=== PATIENT | male | born 1945 | race Caucasian/White ===

== ENCOUNTER → 2018-09-10 11:43 | Outpatient (CLI) | payer OTHER, SELFPAY ==
[2018-09-10 11:58] LABS: Bacteria Urine None Seen; RBC Urine None Seen (0-5/HPF)
[2018-09-10 12:26] LABS: Add Manual Diff / Slide Review NO; Basophils Percent Auto 0.4 % (0-2); Eosinophils Percent Auto 1.1 % (2-4); Hematocrit 45.4 % (41-53); Hemoglobin 15.5 g/dL (13.5-17.5); Mean Corpuscular HGB Conc 34.2 % (30-36); Mean Corpuscular Hemoglobin 32.5 PG (26-34); Mean Corpuscular Volume 94.9 fL (80-100); Monocytes Percent Auto 8.4 % (3-14); Neutrophils Absolute Auto 3400 /uL (3000-5900); Neutrophils Percent Auto 57.1 % (50-75); Platelet Count 180 X10^3/uL (150-400); Red Blood Cell Count 4.79 X10^6/uL (4.5-5.9); Red Cell Distribution Width 12.9 % (11.6-14.8)
[2018-09-10 12:37] LABS: Appearance Urine UA CLEAR; Bilirubin Urine UA NEGATIVE (NEGATIVE); Color Urine UA YELLOW; Glucose Urine UA NEGATIVE (Normal); Ketones Urine UA NEGATIVE (NEGATIVE); Leukocyte Esterase Urine UA NEGATIVE (NEGATIVE); Nitrite Urine UA NEGATIVE (Negative); Occult Blood Urine UA NEGATIVE (Negative); Protein Urine UA NEGATIVE (Negative); Specific Gravity Urine UA 1.015 (1.000-1.035); Urobilinogen Urine UA 0.2 E.U./dL (0.2)
[2018-09-10 12:47] LABS: BUN Creatinine Ratio 21.1 (6-22); Blood Urea Nitrogen 19 mg/dL (9-20); Calcium 9.9 mg/dL (8.4-10.2); Carbon Dioxide 27 mmol/L (22-32); Chloride 101 mmol/L (98-107); Estimated Glomerular Filt Rate > 60.0 mL/min (>60); Glucose 92 mg/dL (80-110); HEMOLYSIS < 15 (0-50); Sodium 142 mmol/L (137-145)
[2018-09-10 12:48] LABS: Hemoglobin A1C% w Est Avg Glu 5.9 % (4.0-6.0)
[2018-09-10 12:49] LABS: Squamous Epithelial Cell Urine 0-1 /HPF; WBC Urine 0-1/HPF (0-5/HPF)
[2018-09-10 12:50] LABS: Potassium 5.4 mmol/L (3.4-5.1)
[2018-09-10 12:55] LABS: Transferrin 292 mg/dL (206-381)
== END ==
PROVIDERS: Visit Provider Orthopaedic Surgery
DX: Z01.818 Encounter for other preprocedural examination (principal); E61.1 Iron deficiency; N39.0 Urinary tract infection, site not specified; R73.9 Hyperglycemia, unspecified
CPT/HCPCS: 36415; 80048; 81001; 83036; 84466; 85025; 87086; 93005; 93010

== ENCOUNTER 2018-10-13 12:09 | Inpatient (IN) | payer OTHER, SELFPAY ==
[2018-09-17 09:49] VITALS: BMI 25.8
[2018-10-13] VITALS (9 sets, daily range): BP systolic 92–152; BP diastolic 60–100; PULSE 61–80; RESP 8–18; TEMP 35.6–36.8; O2SAT 93–100; BMI 25.9
--- NOTE | 2018-10-13 06:00 | DI.RAD.S_ITS ---
PROCEDURE: XR KNEE RT 1TO2V INDICATIONS: post operative right knee TECHNIQUE: 2 view(s) of the knee acquired. COMPARISON: None. FINDINGS: Bones: Patient is status post knee joint arthroplasty. Hardware components are in expected positions. Visualized bony structures are intact. Soft tissues: Overlying postoperative changes are noted. IMPRESSION: Postsurgical changes of acute right total knee arthroplasty. Normal alignment established. Dictated by: Jordan Schwarz M.D. on 10/13/2018 at 17:10 Approved by: Jordan Schwarz M.D. on 10/13/2018 at 17:11
[2018-10-13] MEDS: ACETAMINOPHEN 325 MG TABLET 975 MG PO ×2 (13:10→22:32)
[2018-10-13] MEDS: VANCOMYCIN 1,000 MG/200 ML FROZ.PIGGY 200 MG IV (13:11)
[2018-10-13] MEDS: CELECOXIB 200 MG CAPSULE PO (13:11)
--- NOTE | 2018-10-13 14:13 | PM.PREOP ---
Pre-operative Note Interval Note History & Physical reviewed/Exam performed by Physician: Yes Changes to H&P: No
[2018-10-13] MEDS: TRANEXAMIC ACID 1,000 MG VIAL 1000 MG INJ ×2 (15:00→15:45)
[2018-10-13] MEDS: BUPIVACAINE 0.25% W/ EPI VIAL 60 ML INJ (15:04)
[2018-10-13] MEDS: CEFAZOLIN 1 GM VIAL IV (15:04)
[2018-10-13] MEDS: BUPIVACAINE LIPOSOME 266 MG/20 ML VIAL INJ (15:06)
[2018-10-13] MEDS: MORPHINE 4 MG/ML INJ INJ (15:07)
--- NOTE | 2018-10-13 15:10 | SUR.OPER ---
Supine on padded OR bed. Pillow under head, arms secured on padded armboards <90 degree abduction. Safety belt across torso. Non-operative leg secured with tape over blanket over lower leg. Operative leg secured in DeMayo/Alexys positioner. Foam padded brace at thigh of operative leg.
[2018-10-13] MEDS: LACTATED RINGERS 1,000 ML 42 ML IV ×2 (15:34→15:35)
--- NOTE | 2018-10-13 16:21 | PM.OP.1 ---
Operative Date/Time/Diagnoses Date of procedure: 10/13/18 Time of procedure: 16:00 Pre-op diagnosis: Right knee osteoarthritis Post-op diagnosis: same Procedure & Clinicians Procedure: Right total knee replacement Same procedure as scheduled: Yes Indications: The patient has had progressively worsening right knee pain with radiographic changes consistent with arthritis. Non-operative management has failed and the patient has requested total knee replacement. The risks, benefits and alternatives to surgery were discussed with the patient prior to proceeding. Risks discussed included, but were not limited to, failure to relieve pain, stiffness, infection, nerve damage, deep venous thrombosis, pulmonary embolism, stroke, coma, heart attack, permanent paralysis and , as well as the potential need for eventual revision of the prosthetic. Surgeon: Jim Morales Stitch Cleaner: Josr Ramos Click Yes if Unassisted: No Anesthesia Type: General, Spinal and Local Operative Notes Findings: Severe medial and moderate patellofemoral osteoarthritis. There was relative preservation of the lateral compartment. Closure Type: primary Specimen(s): none sent Implants & Drains: Implants used in this procedure were manufactured by the [employer] and included the BCS II Journey total knee replacement with a size 7 right cobalt chromium femur, 7 right non porous tibial base plate, 10 mm cross-linked polyethylene insert and a 35 mm oval Ruth Ann II patellar component. Applied: graft(s) Estimated Blood Loss (mL): 50 Blood products transfused: none Tourniquet time (min): 50 Procedure in detail: The patient was seen in the pre-operative area, where the patient identified the right knee as the operative site and this was marked with my initials. The patient received pre-operative antibiotics, and was taken to the operating room and placed on the operative table in the supine position. After satisfactory anesthesia, a full time paramedic out was performed. The right leg was encircled with a tourniquet about the proximal thigh, and the leg was prepared from the toes to the tourniquet with ChloroPrep in the usual fashion and draped through sterile drapes. The leg was elevated and exsanguinated with Eschmark bandage and the tourniquet inflated to 250 mmHg pressure. The knee was approached through an approximately 18 cm incision centered over the patella and carried into the knee through a medial parapatellar arthrotomy. The anterior osteophytes and soft tissues were removed. The rotational landmarks of Deshawn's line and the transepicondylar axis were marked on the femur with electrocautery, and intramedullary guide holes for the femur and tibia were created. The distal femoral cut was made in 6 degrees of valgus using the intramedullary guide at the primary cut setting. The proximal tibial cut was then made using the intramedullary guide, taking 9 mm of bone off the less involved side. The extension gap was checked and the rotation of the femoral component confirmed with the gap balancing system. The anterior, posterior and chamfer cuts were then made. The posterior osteophytes and soft tissues were then removed. The posterior capsule was injected with part of a mixture of 60 ml 0.25% Marcaine mixed with 20 ml Exparel and 4 mg of morphine for post-operative pain control. The remainder of this mixture was injected into the capsule and subcutaneous tissues during cement curing. The tibia was prepared with the rotation set by an extra medullary guide. Trial tibial and femoral components were then placed and the intercondylar notch cut through the femoral trial. Range of motion was 0-135 degrees, with good stability throughout the range. The patella was then cut to accommodate the patellar prosthetic. There was no need for a lateral release. The trials were then removed, and the femoral hole plugged with a bone plug. The bone was prepared with pulsatile lavage, and dried with a sponge. Cement was applied and the final prosthetics placed. Excess cement was removed during and after cement curing. After confirming there was no extruded cement posteriorly, the final tibial insert was placed. The knee was copiously irrigated and the tourniquet deflated. Hemostasis was obtained. The capsule was closed with interrupted # 2 polyester suture. The subcutaneous layer was closed with 3-0 Vicryl, and the skin with a running 3-0 V-Lock suture and SteriStrips. An Aquacel Ag dressing was applied and the patient was taken to recovery having tolerated the procedure well. Complications: none Condition: stable Disposition: PACU Plan for aftercare: The patient will be maintained on a standard total knee replacement protocol with weight bearing as tolerated. The patient will receive aspirin and sequential compression devices for DVT prophylaxis. The patient will be discharged home when safe for the home environment.
--- NOTE | 2018-10-13 17:08 | SUR.PHASEI ---
stable PACU stay report called to bernarda Welch transported up via bed and left in stable condition.
[2018-10-13] MEDS: LACTATED RINGERS 1,000 ML 125 ML IV (18:00)
[2018-10-13] MEDS: OXYCODONE IR 5 MG TABLET PO ×2 (18:51→19:29)
[2018-10-13] MEDS: OXYCODONE IR 10 MG TABLET PO (22:32)
[2018-10-13] MEDS: ASPIRIN EC 81 MG TABLET PO (22:33)
[2018-10-13] MEDS: DOCUSATE 100 MG CAPSULE PO (22:33)
[2018-10-13] MEDS: CEFAZOLIN 2 GM/100 ML FROZ.PIGGY IV (22:33)
[2018-10-14] VITALS (7 sets, daily range): BP systolic 109–139; BP diastolic 71–86; PULSE 64–83; RESP 16–20; TEMP 36.2–37; O2SAT 95–100
--- NOTE | 2018-10-14 00:50 | PC.NURSE ---
Pt. sound asleep, will wake him up @ 0130 for his pain meds. per 3-11 shift patient requested to wake him up when his pain medication is due. Will monitor.
[2018-10-14] MEDS: OXYCODONE IR 10 MG TABLET PO ×7 (01:09→23:08)
[2018-10-14] MEDS: LACTATED RINGERS 1,000 ML 125 ML IV (03:26)
[2018-10-14] MEDS: THYROID, PORK 60 MG TABLET PO (05:52)
[2018-10-14 05:58] LABS: Hematocrit 39.2 % (41-53)
[2018-10-14] MEDS: CEFAZOLIN 2 GM/100 ML FROZ.PIGGY IV (07:03)
--- NOTE | 2018-10-14 07:55 | PM.PNPO.1 ---
Subjective Date Patient Seen: 10/14/18 Time Patient Seen: 07:55 Interval history: The patient reports he had some difficulty with urination last night but is comfortable this morning and is urinating spontaneously. Exam Vital Signs (past 8 hours): - 10/14/18 01:10 10/14/18 05:45 Temperature 97.8 F 97.2 F L Pulse Rate 72 76 Respiratory Rate 19 20 Blood Pressure 130/85 120/82 Pulse Oximetry 95 97 Oxygen Delivery Method Room Air Narrative Exam Narrative: Right knee wound is dressed with no drainage on the bandage. Calf is soft. Light touch and motion are intact in the right lower extremity. Objective Labs Result Diagrams: 10/14/18 05:45 Labs: Laboratory Results - last 24 hr 10/14/18 05:45 Hgb 13.0 L Hct 39.2 L Assessment & Plan Post-op Postoperative Procedures Operation Date: 10/13/18 14:30 Actual Procedures Side Surgeon p Total Knee Arthroplasty Right Jim Morales MD Postoperative day: 1 Postoperative status: doing well, urinary retention and anemia Postoperative status narrative: Patient is doing well in general. He had temporary urinary retention but this appears to have resolved. He has had some minor issues with pain control. He has an acute post hemorrhagic anemia within expected limits. Postoperative plan: routine post-op care and ambulate Postoperative plan narrative: The patient will work with physical therapy today. He lives in a home with a steep set of stairs and his is not able to be at home today to take care of him. We will prepare him for discharge home tomorrow. Time Spent With Patient less than 15 minutes Quality VTE Deep Vein Thrombosis/Pulmonary Embolism Present on Admission: No
[2018-10-14] MEDS: ACETAMINOPHEN 325 MG TABLET 975 MG PO ×2 (09:07→14:43)
[2018-10-14] MEDS: HYDROCORTISONE 10 MG TABLET 5 MG PO (09:07)
[2018-10-14] MEDS: ASPIRIN EC 81 MG TABLET PO ×2 (09:07→22:56)
--- NOTE | 2018-10-14 09:23 | PC.NURSE ---
Addendum entered by Julianne Cannon R.N. 10/14/18 14:55: PAIN - states r knee discomfort 6-7 on scale 0/10, resting bed, given 10mg po oxycodone with scheduled tylenol. Original Note: Addendum entered by Julianne Cannon R.N. 10/14/18 11:20: PAIN - r knee discomfort 6-7 on scale 0/10, given 10mg po oxycodone, assist x1 w/fww, back to bed to rest. Original Note: Addendum entered by Julianne Cannon R.N. 10/14/18 10:34: MS/PAIN - phys therapy in and pt ambul w/fww in hallway, gait steady, ret to chair, discussed pain mgt and would like to wait a little longer. Original Note: AM NOTE - alert, states pain after earlier oxycodone 4-5 on scale 0/10, increased with movement, discussed pain mgt, dosages, timing, given scheduled tylenol this am, +bt, passing flatus, no nause, osbaldo gen diet, able to void w/o difficulty clear yellow urine, ra 96%, demonstrated correct use IS, plan for pt to dc home tomorrow.
--- NOTE | 2018-10-14 12:12 | PT.IIE ---
Current Diagnoses Bilateral primary osteoarthritis of knee (10/13/18) Surgery Performed Operation Date: 10/13/18 14:30 Actual Procedures p Total Knee Arthroplasty(Right) - Jim Morales MD Surgical History (Last Updated 09/17/18 @ 10:28 by Janeth Avila RN) History of inguinal hernia repair, bilateral (Acute) Hx of repair of right rotator cuff (Acute) Medical History (Last Updated 09/17/18 @ 10:28 by Janeth Avila RN) Arthritis (Acute) Cataracts, bilateral (Acute) Chronic back pain (Acute) Chronic neck pain (Acute) Chronic right shoulder pain (Acute) Detached retina, right (Acute ~2011) Eczema (Acute) Frequent PVCs (Acute ~2006) Hypothyroidism (Acute) Iatrogenic adrenal insufficiency (Acute) Kidney stones (Acute ~1979) MRSA (methicillin resistant Staphylococcus aureus) (Acute) Migraines (Acute) Neuropathy (Acute) Osteoarthritis (Acute) Pneumonia (Acute) Sleep apnea (Acute) Testicular hypofunction (Acute) Physical Therapy Inpatient Evaluation/Re-Eval M1 PT/OT-IP Prior Functional Status Start: 10/14/18 08:30 Freq: NEEDED Status: Active Protocol: Document 10/14/18 10:00 RS (Rec: 10/14/18 12:12 [id number]) Medical Review Prior Functional Status Medical History Reviewed Yes Diet/Fluid Consistency Regular Communication no known deficits Mobility and Gait independent for the most part, occasionally using a SPC, denies falls Activities of Daily Living and IADL's independent Prior Functional Level (Other details) very active career and lifestyle Social History Household Members spouse Living Arrangements House Number of Floors (Floors) Two Floors Number of Stairs To Enter/Railing? 3STE, L ascending rail Home Environment Standard Height Toilet Walk in Shower Home Equipment Front Wheel Walker Straight Cane Employment Status Self-Employed M2 PT-IP Current Condition Start: 10/14/18 08:30 Freq: NEEDED Status: Active Protocol: Document 10/14/18 10:00 RS (Rec: 10/14/18 12:12 [id number]) Physical Therapy Current Condition Current Condition Evaluation Date 10/14/18 Treatment Diagnosis R TKA Onset Date 10/13/18 Weight Bearing Status Weight Bearing Status Weight Bear as Tolerated M3 PT-IP Subjective Start: 10/14/18 08:30 Freq: NEEDED Status: Active Protocol: Document 10/14/18 10:00 RS (Rec: 10/14/18 12:12 RS [id number]) Subjective Physical Therapy Visit Type Type Initial Evaluation Visit Start Time 08:40 Visit Stop Time 10:00 Total Visit Minutes 80 Physical Therapy Visit Comments Patient Comments Pt reports doing well, a little nervous about getting started but very agreeable to participate. Patient Goals go home tomorrow Therapy Pain Assessment Pain When Pain Assessed At Rest Pain Present Pain Present Pain Reported Location Right Knee Intensity 2 Scale Used Numeric (1 - 10) Description Aching Pain Management Techniques Apply Cold Modification of Treatment Re-positioning Timing of Activity with Medications M4 PT-IP Mobility and Gait Start: 10/14/18 08:30 Freq: NEEDED Status: Active Protocol: Document 10/14/18 10:00 RS (Rec: 10/14/18 12:12 [id number]) PT-Bed Mobility Assessment Supine to Sit Supine to Sit Standby Assistance Sit to Supine Sit to Supine Standby Assistance Scooting Scooting to Edge of Bed Independent PT-Transfer Assessment Sit to and From Stand Sit to and from Stand Standby Assistance Equipment Transfer Assistive Device Gait Belt Front Wheeled Walker Transfers Transfer Destination Bed Chair Transfer Technique walked Transfer Ability Level of Assist Standby Assistance Comments Mobility Comments Pt able to mobilize well, needs a little extra time getting up to sitting for the first time. Pt also able to demonstrate use of crossing ankles and using LLE to lift RLE up onto the bed. Pt needed initial cues for hand placement for sit<>stand, but after that was able to perform all transfers with only SBA. Gait Assessment Gait Gait Assistance Required: Standby Assistance Distance (Feet) 140 Able to Maintain Weight Bearing Status Yes During Gait Assistive Devices Assistive Device Gait Belt Front Wheeled Walker Orthotic/Prosthetic Devices or Brace: No Gait Deviations General Gait Pattern Antalgic Decreased Stride Length Step-to Gait Factors Limiting Gait Function Factors Limiting Gait Function Decreased Strength Limited Range of Motion Pain Comments Gait Comments Pt very steady with no LOB at any point. Pt initially walking with step-to pattern, used verbal and visual cues to attempt to correct to symmetrical step lengths, however, pt was having an extremely difficult time coordinating when to move the FWW vs taking each step. Attempting to correct it was abandoned with focus returned to just steady and smooth steps. Next session will return focus to improving symmetrical stepping. Stair Climbing Assessment Comments Stair Climbing Comments not tested yet PT-Balance Assessment Sitting Balance and Reactions Static Sitting Balance Ability Normal Dynamic Sitting Balance Ability Normal Standing Balance and Reactions Static Standing Balance Ability Normal Dynamic Standing Balance Ability Good Device Used FWW M5 PT-IP Objective Assessments Start: 10/14/18 08:30 Freq: NEEDED Status: Active Protocol: Document 10/14/18 10:00 RS (Rec: 10/14/18 12:12 RS [id number]) Orientation Orientation/Cognition Level of Alertness Alert Orientation Name Age Birthday Month Date Year Day of Week Place Situation Language Function Ability No Deficits Noted Safety Awareness Understands Safety Issues Memory Description No Deficits Noted Gross Range of Motion Upper Extremity ROM Assessment Within Functional Limits Lower Extremity ROM Assessment Bilaterally Impaired Strength Upper Extremity Strength Assessment Within Functional Limits Lower Extremity Strength Assessment Right Impaired Coordination Assessment Gross Coordination Gross Coordination WNL M6 PT-IP Treatment Start: 10/14/18 08:30 Freq: NEEDED Status: Active Protocol: Document 10/14/18 10:00 RS (Rec: 10/14/18 12:12 [id number]) Physical Therapy Treatment Exercises Exercises Ankle Pumps Quad Sets Heel Slides Straight Leg Raises Short Arc Quads Passive Knee Extension Hang Seated Knee Flexion/Extension Knee ROM Measurement 5-60 Education Education Provided Precautions Weight Bearing Status Post-Op Packet Safety M7 PT-IP Assessment and Plan Start: 10/14/18 08:30 Freq: NEEDED Status: Active Protocol: Document 10/14/18 10:00 RS (Rec: 10/14/18 12:12 RS [id number]) PT Summary Assessment and Plan Potential Rehabilitation Potential Excellent Status of Condition at Evaluation Stable Summary Impairments Pain ROM Strength Gait Progress Towards Goals Progressing Toward Goals Assessment Summary Pt is POD #1 R TKA. Pt has significantly limited R knee ROM but is still able to mobilize fairly well. Pt needs more time to address gait pattern and trial stairs, but anticipate that pt will be safe to discharge home tomorrow (or when medically ready) with spouse and continue with OPPT. Goals Bed Mobility Goal Independent Transfer Goal Independent Front Wheeled Walker Gait Goal Independent Front Wheel Walker Gait Distance 300 Other Goals up/down 3 steps w/ L ascending rail with SBA. Days to Meet Goals 2 Frequency of Treatment Frequency Of Treatment Twice a Day Treatment Plan Physical Therapy Treatment Plan Bed Mobility Training Transfer Training Gait Training Therapeutic Exercise Balance Retraining Post Op Education Discharge Planning Hot or Cold Pack Neuromuscular Re-ed Coordination Retraining Manual Therapy Other Recommendations and Next Treatment improve on symmetrical gait, Focus trial stairs Recommendations To Nursing Amount of Assist Needed Standby Assistance Discharge Recommendations PT Discharge Recommendations Home with Assistance Outpatient PT
--- NOTE | 2018-10-14 13:47 | PT.IPTN ---
Current Diagnoses Bilateral primary osteoarthritis of knee (10/13/18) Surgery Performed Operation Date: 10/13/18 14:30 Actual Procedures p Total Knee Arthroplasty(Right) - Jim Morales MD Physical Therapy Treatment Note M2 PT-IP Current Condition Start: 10/14/18 08:30 Freq: NEEDED Status: Active Protocol: Document 10/14/18 10:00 RS (Rec: 10/14/18 12:12 RS [id number]) Physical Therapy Current Condition Current Condition Evaluation Date 10/14/18 Treatment Diagnosis R TKA Onset Date 10/13/18 Weight Bearing Status Weight Bearing Status Weight Bear as Tolerated M3 PT-IP Subjective Start: 10/14/18 08:30 Freq: NEEDED Status: Active Protocol: Document 10/14/18 13:36 SA (Rec: 10/14/18 13:47 SA [id number]) Subjective Physical Therapy Visit Type Type Treatment Note Visit Start Time 13:02 Visit Stop Time 13:32 Total Visit Minutes 30 Notes Pt agreeable to PT. Number of PASTE UP COPY CAMERA OPERATOR Visits 1 Physical Therapy Visit Comments Patient Comments Willing to try stairs, R knee pain 3/10 at rest. Therapy Pain Assessment Pain When Pain Assessed During Mobility Pain Present Pain Present Pain Reported Location Right Knee Intensity 7 Scale Used Numeric (1 - 10) Description Acute Pain Management Techniques Apply Cold Modification of Treatment Re-positioning Timing of Activity with Medications M4 PT-IP Mobility and Gait Start: 10/14/18 08:30 Freq: NEEDED Status: Active Protocol: Document 10/14/18 13:36 SA (Rec: 10/14/18 13:47 SA [id number]) PT-Bed Mobility Assessment Rolling Type of Rolling Roll to Left Supine to Sit Supine to Sit Standby Assistance Sit to Supine Sit to Supine Standby Assistance Scooting Scooting to Edge of Bed Independent Scooting Up and Down in Bed Independent PT-Transfer Assessment Sit to and From Stand Sit to and from Stand Standby Assistance Equipment Transfer Assistive Device Gait Belt Front Wheeled Walker Orthotic/Prosthetic Devices or Brace: No Transfers Transfer Destination Bed Transfer Technique walked Transfer Ability Level of Assist Standby Assistance Comments Mobility Comments Pt uses LLE to help clear RLE over EOB for SUP<>Sit. SBA for bed mobility and transfers with min cues and no LOB. VCs for increasing WBing on RLE during standing. Gait Assessment Gait Gait Assistance Required: Standby Assistance Distance (Feet) 175 Able to Maintain Weight Bearing Status Yes During Gait Assistive Devices Assistive Device Gait Belt Front Wheeled Walker Orthotic/Prosthetic Devices or Brace: No Gait Deviations General Gait Pattern Antalgic Decreased Stride Length Step-to Gait Factors Limiting Gait Function Factors Limiting Gait Function Decreased Strength Limited Range of Motion Pain Comments Gait Comments Pt able to correct out of step to gait pattern with cues for continuous movement of FWW. Pt gradually increased LLE step length with increased WBing of RLE. Pt rated increase in knee pain to 7/10 on pain scale with ambulation. Stair Climbing Assessment Evaluation Level of Assist On Stairs Contact Guard Assistance Devices Stair Climbing Assistive Devices Straight Cane Technique/Endurance Stair Climbing Direction Ascend and Descend Stair Climbing Technique Step to Step Number of Steps Climbed 3 Query Text: Stair Climbing Set # Repetitions (reps) 2 Comments Stair Climbing Comments First rep patient use B rails with CGA, 2nd time pt used single rail and SPC to simulate situation at home, CGA and mod cues for safe technique. Pt fatigued after stair training. M5 PT-IP Objective Assessments Start: 10/14/18 08:30 Freq: NEEDED Status: Active Protocol: Document 10/14/18 10:00 RS (Rec: 10/14/18 12:12 RS [id number]) Orientation Orientation/Cognition Level of Alertness Alert Orientation Name Age Birthday Month Date Year Day of Week Place Situation Language Function Ability No Deficits Noted Safety Awareness Understands Safety Issues Memory Description No Deficits Noted Gross Range of Motion Upper Extremity ROM Assessment Within Functional Limits Lower Extremity ROM Assessment Bilaterally Impaired Strength Upper Extremity Strength Assessment Within Functional Limits Lower Extremity Strength Assessment Right Impaired Coordination Assessment Gross Coordination Gross Coordination WNL M6 PT-IP Treatment Start: 10/14/18 08:30 Freq: NEEDED Status: Active Protocol: Document 10/14/18 13:36 SA (Rec: 10/14/18 13:47 SA [id number]) Physical Therapy Treatment Exercises Exercises Ankle Pumps Quad Sets Heel Slides Straight Leg Raises Short Arc Quads Passive Knee Extension Hang Seated Knee Flexion/Extension Education Education Provided Precautions Weight Bearing Status Post-Op Packet Safety M7 PT-IP Assessment and Plan Start: 10/14/18 08:30 Freq: NEEDED Status: Active Protocol: Document 10/14/18 13:36 SA (Rec: 10/14/18 13:47 SA [id number]) PT Summary Assessment and Plan Summary Assessment Summary Pt with improving gait and ability to manage stairs, receptive to cues and safety training. States will be present to help him at home and on stairs. Frequency of Treatment Frequency Of Treatment Twice a Day Recommendations To Nursing Amount of Assist Needed Standby Assistance Discharge Recommendations PT Discharge Recommendations Home with Assistance Outpatient PT
--- NOTE | 2018-10-14 19:07 | PC.NURSE ---
1630- Pt up to chair, ice pack to right knee, aquacell/elma wrap CDI, CMS +. Reports ready for pain pill when available, rates pain 4-5/10 at this time, but okay until time for pain med. R hand SL, 95%RA, VSS, 1PA FWW.
[2018-10-14] MEDS: DOCUSATE 100 MG CAPSULE PO (22:56)
[2018-10-15] MEDS: HYDROMORPHONE 0.5 MG INJ IV ×2 (00:42→06:39)
--- NOTE | 2018-10-15 03:22 | PC.NURSE ---
Ancillary Specialist Summary: 0030: Awake, having pain in rt knee area. Assisted to reposition. Fresh ice to rt knee; heel floated and rt leg on pillow. Pt up to bathroom, passed gas but no bowel movement. Medicated for severe pain (/) with Dilaudid 0.5mg IV. 0200: Sleeping; respirations unlabored.
[2018-10-15 04:34] VITALS: BP 128/83; PULSE 80; RESP 16; TEMP 36.9; O2SAT 97
[2018-10-15] MEDS: OXYCODONE IR 5 MG TABLET PO (04:52)
[2018-10-15] MEDS: THYROID, PORK 60 MG TABLET PO (04:52)
--- NOTE | 2018-10-15 07:48 | PM.DS.1 ---
History of Present Illness Date Patient Seen: 10/15/18 Time Patient Seen: 07:30 Chief complaint: [id number] Knee Arthroplasty Narrative: Patient is seen bedside status post right total knee arthroplasty on 10/13/[address] Morales. Patient is postop day #2. He did well with physical therapy yesterday however early this morning his block wore off and he has been having intractable pain. IV Dilaudid is the only thing that has helped his pain. He states that when he had a shoulder surgery several years ago he had to take Dilaudid for that as well as the oxycodone to work. Otherwise patient is doing well, he is concerned that he has not had a bowel movement yet. He denies chest pain shortness of breath numbness tingling and calf pain. Patient will be transitioned to by mouth Dilaudid and given a laxative. Discharge Providers Date of admission: 10/13/18 12:09 Consults: 10/13/18 17:29 Consult to Discharge Planning Routine Comment: Consult to Physical Therapy Evaluate & Treat Comment: Physician Instructions: postop TKA protocol Discharge provider: Qing Larry PA-C Discharge Date: 10/15/18 Summary Discharge Diagnosis: Right knee osteoarthritis Hospital Course: Patient was admitted to the hospital status post right TKA on 10/13/[address] Morales. Patient tolerated the procedure well and the major complications. Patient was transitioned to the acute care for her were seen by physical therapy and recommended for discharge home. Patient was stable and ready for discharge on 10/15/2018. Status at Discharge Cognitive/behavioral status at discharge: Alert and oriented x3 Functional status at discharge: uses cane/walker Overall status at discharge: patient is progressing back to baseline Time Spent with Patient Less than 30 minutes Exam Vital Signs (past 8 hours): - 10/15/18 04:34 Temperature 98.4 F Pulse Rate 80 Respiratory Rate 16 Blood Pressure 128/83 Pulse Oximetry 97 Oxygen Delivery Method Room Air Narrative Exam Narrative: Well-developed well-nourished no acute distress alert and oriented x4. Dressing on right knee is clean dry and intact. No signs of drainage minimal inflammation around the joint no erythema. Calf is soft and compressible. Full range of motion of the ankle. Neurovascularly intact in this extremity. Objective Labs Result Diagrams: 10/14/18 05:45 Discharge Plan Discharge Plan Patient Disposition: Home Discharge comment: d/c home once pain is controlled Discharge Med Rec/Prescriptions Prescriptions: New acetaminophen 325 mg Tablet 975 mg PO TID Qty: 0 RF: 0 aspirin 81 mg Tablet,Delayed Release (Dr/Ec) 81 mg PO BID Qty: 0 RF: 0 hydromorphone 2 mg Tablet 2 mg PO Q4H PRN (Reason: Pain, Moderate (4-6)) Qty: 40 RF: 0 docusate sodium 100 mg Capsule 100 mg PO BID Qty: 0 RF: 0 Continue hydrocortisone 5 mg Tablet 5 mg PO DAILY RF: 0 thyroid (pork) [Nature-Throid] 65 mg Tablet 65 mg PO DAILY RF: 0 Test-Chrysin Lipo cream 1 applic Topical DAILY RF: 0 Discontinued aspirin 81 mg Tablet,Delayed Release (Dr/Ec) 1 - 2 tab PO DAILY RF: 0 Follow up/Referrals: Jim Morales MD [Physician] - (Follow up on 10/21/18 at 4pm with Elise Tovar PA-C at the [facility] office) Provider Discharge Instructions Diet: Diet as Tolerated Activity: Weightbearing as tolerated, use walker until cleared by PT. Do home exercises, aggressively elevate operative leg (toes above your nose Cold/Heat Therapy: Apply ice 20 minutes at a time to surgical site at least hourly while awake Skin/Wound/Dressing Care Report to your healthcare provider any signs of infection, such as:: chills, fever, night sweats, increased pain, unusual drainage and unusual redness Dressing: keep dressing clean, dry, and intact. May shower with dressing in place, no soaking. Visit Report/Discharge Packet Instructions: DI for Knee Replacement, Hydromorphone Visit Report Forms: Stroke Signs & Symptoms Discharge Data Attending Provider: Jim Morales Admit Date/Time: 10/13/18 12:09 Quality VTE Deep Vein Thrombosis/Pulmonary Embolism Present on Admission: No
[2018-10-15] MEDS: HYDROMORPHONE 2 MG TABLET 4 MG PO ×2 (08:10→12:00)
[2018-10-15 08:15] VITALS: BP 143/69; PULSE 83; RESP 18; TEMP 36.6; O2SAT 96
[2018-10-15] MEDS: HYDROCORTISONE 10 MG TABLET 5 MG PO (08:16)
[2018-10-15] MEDS: DOCUSATE 100 MG CAPSULE PO (08:17)
[2018-10-15] MEDS: ASPIRIN EC 81 MG TABLET PO (08:17)
[2018-10-15] MEDS: BISACODYL 5 MG TABLET 10 MG PO (08:20)
[2018-10-15] MEDS: POLYETHYLENE GLYCOL 3350 17 GM POWD.PACK PO (11:57)
[2018-10-15] MEDS: ACETAMINOPHEN 325 MG TABLET 975 MG PO (12:01)
--- NOTE | 2018-10-15 12:04 | PT.IPTN ---
Current Diagnoses Bilateral primary osteoarthritis of knee (10/13/18) Surgery Performed Operation Date: 10/13/18 14:30 Actual Procedures p Total Knee Arthroplasty(Right) - Jim Morales MD Physical Therapy Treatment Note M2 PT-IP Current Condition Start: 10/14/18 08:30 Freq: NEEDED Status: Active Protocol: Document 10/14/18 10:00 RS (Rec: 10/14/18 12:12 RS [id number]) Physical Therapy Current Condition Current Condition Evaluation Date 10/14/18 Treatment Diagnosis R TKA Onset Date 10/13/18 Weight Bearing Status Weight Bearing Status Weight Bear as Tolerated M3 PT-IP Subjective Start: 10/14/18 08:30 Freq: NEEDED Status: Active Protocol: Document 10/15/18 11:52 SA (Rec: 10/15/18 12:04 SA [id number]) Subjective Physical Therapy Visit Type Type Treatment Note Visit Start Time 09:03 Visit Stop Time 09:40 Total Visit Minutes 37 Notes Pt agreeable to PT this AM. Number of [employer]SEM[employer]ER Visits 2 Physical Therapy Visit Comments Patient Comments Pt reports he had a rough time early this AM with pain, was unable to sleep. Patient Goals D/C this afternoon Therapy Pain Assessment Pain When Pain Assessed During Mobility Pain Present Pain Present Pain Reported Location Right Knee Intensity 5 Scale Used Numeric (1 - 10) Description Acute Pain Management Techniques Apply Cold Modification of Treatment Re-positioning Timing of Activity with Medications M4 PT-IP Mobility and Gait Start: 10/14/18 08:30 Freq: NEEDED Status: Active Protocol: Document 10/15/18 11:52 SA (Rec: 10/15/18 12:04 SA [id number]) PT-Bed Mobility Assessment Rolling Type of Rolling Roll to Left Level of Assist Standby Assistance Supine to Sit Supine to Sit Independent Sit to Supine Sit to Supine Independent Scooting Scooting to Edge of Bed Independent Scooting Up and Down in Bed Independent PT-Transfer Assessment Sit to and From Stand Sit to and from Stand Standby Assistance Equipment Transfer Assistive Device Gait Belt Front Wheeled Walker Orthotic/Prosthetic Devices or Brace: No Transfers Transfer Destination Chair Toilet Transfer Technique Stand Step Pivot Transfer Ability Level of Assist Standby Assistance Comments Mobility Comments Pt SBA with mobility tasks, demonstrated getting on/off toilet as he would with set up at home and pt able to do safely with cues and SBA. Pt a bit impulsive with cues for pacing and movement planning. Gait Assessment Gait Gait Assistance Required: Standby Assistance Distance (Feet) 200 Able to Maintain Weight Bearing Status Yes During Gait Assistive Devices Assistive Device Gait Belt Front Wheeled Walker Orthotic/Prosthetic Devices or Brace: No Gait Deviations General Gait Pattern Antalgic Decreased Stride Length Step-to Gait Factors Limiting Gait Function Factors Limiting Gait Function Decreased Strength Limited Range of Motion Pain Comments Gait Comments Improved gait with distance walked and pt not focusing gait pattern. Pt tends to revert back to step to gait pattern with shortened LLE step length. Stair Climbing Assessment Evaluation Level of Assist On Stairs Contact Guard Assistance Devices Stair Climbing Assistive Devices Left Railing Right Railing Technique/Endurance Stair Climbing Technique Step to Step Number of Steps Climbed 3 Query Text: Stair Climbing Set # Repetitions (reps) 3 Comments Stair Climbing Comments Pt able to ascend/descend stairs safely with step to gait and CGA, min ceus for safety an uses both rails. At home pt has single rail but will have present to help . M5 PT-IP Objective Assessments Start: 10/14/18 08:30 Freq: NEEDED Status: Active Protocol: Document 10/14/18 10:00 RS (Rec: 10/14/18 12:12 RS [id number]) Orientation Orientation/Cognition Level of Alertness Alert Orientation Name Age Birthday Month Date Year Day of Week Place Situation Language Function Ability No Deficits Noted Safety Awareness Understands Safety Issues Memory Description No Deficits Noted Gross Range of Motion Upper Extremity ROM Assessment Within Functional Limits Lower Extremity ROM Assessment Bilaterally Impaired Strength Upper Extremity Strength Assessment Within Functional Limits Lower Extremity Strength Assessment Right Impaired Coordination Assessment Gross Coordination Gross Coordination WNL M6 PT-IP Treatment Start: 10/14/18 08:30 Freq: NEEDED Status: Active Protocol: Document 10/15/18 11:52 SA (Rec: 10/15/18 12:04 SA [id number]) Physical Therapy Treatment Exercises Exercises Ankle Pumps Quad Sets Heel Slides Straight Leg Raises Short Arc Quads Passive Knee Extension Hang Seated Knee Flexion/Extension Education Education Provided Precautions Weight Bearing Status Post-Op Packet Safety M7 PT-IP Assessment and Plan Start: 10/14/18 08:30 Freq: NEEDED Status: Active Protocol: Document 10/15/18 11:52 SA (Rec: 10/15/18 12:04 SA [id number]) PT Summary Assessment and Plan Potential Rehabilitation Potential Excellent Status of Condition at Evaluation Stable Summary Assessment Summary Despite pain set back this AM, pt ambulating well with FWW and able to go up/down stairs safely. Mod cues for pacing. Frequency of Treatment Frequency Of Treatment Twice a Day Recommendations To Nursing Amount of Assist Needed Standby Assistance Discharge Recommendations PT Discharge Recommendations Home with Assistance Outpatient PT
[2018-10-15 12:20] VITALS: BP 127/94; PULSE 87; RESP 18; TEMP 36.9; O2SAT 98
== END 2018-10-15 13:25 | disposition home or self-care (01) | DRG 470 ==
PROVIDERS: Admitting Provider Orthopaedic Surgery; Visit Provider Orthopaedic Surgery
PROC: 0SRC0JZ Replacement of Right Knee Joint with Synthetic Substitute, Open Approach (ICD-10-PCS; CPT 27447; principal; 2018-10-13 14:30)
DX: M17.11 Unilateral primary osteoarthritis, right knee (principal); E03.9 Hypothyroidism, unspecified
CPT/HCPCS: 36415; 73560; 85014; 85018; 97110; 97116; 97161; 97530; C1776; C9290; J0690; J1100; J1170; J2270; J2405; J2704; J3370

== ENCOUNTER 2019-02-09 11:50 | Inpatient (IN) | payer OTHER, SELFPAY ==
[2018-10-13 17:58] VITALS: BMI 25.9
[2019-01-26 12:14] VITALS: BMI 25.8
[2019-02-09] VITALS (15 sets, daily range): BP systolic 93–144; BP diastolic 64–92; PULSE 56–74; RESP 12–18; TEMP 35.9–36.4; O2SAT 93–98; BMI 25.8
--- NOTE | 2019-02-09 11:02 | DI.RAD.S_ITS ---
PROCEDURE: XR KNEE LT 1TO2V INDICATIONS: total left knee TECHNIQUE: 2 view(s) of the knee acquired. COMPARISON: None. FINDINGS: Bones: Patient is status post knee joint arthroplasty. Hardware components are in expected positions. Visualized bony structures are intact. Soft tissues: Overlying postoperative changes are noted. IMPRESSION: Expected postsurgical change for left knee arthroplasty. Dictated by: Leonela Wang MD, PhD on 02/09/2019 at 16:49 Approved by: Leonela Wang MD, PhD on 02/09/2019 at 16:50
[2019-02-09] MEDS: LACTATED RINGERS 1,000 ML 84 ML IV (12:35)
[2019-02-09] MEDS: CELECOXIB 200 MG CAPSULE PO (12:39)
[2019-02-09] MEDS: ACETAMINOPHEN 325 MG TABLET 975 MG PO ×2 (12:39→21:02)
[2019-02-09] MEDS: PREGABALIN 75 MG CAPSULE PO (12:40)
--- NOTE | 2019-02-09 14:06 | PM.PREOP ---
Pre-operative Note Interval Note History & Physical reviewed/Exam performed by Physician: Yes Changes to H&P: No
[2019-02-09] MEDS: CEFAZOLIN 2 GM/100 ML FROZ.PIGGY IV (14:45)
[2019-02-09] MEDS: TRANEXAMIC ACID 1,000 MG VIAL 1000 MG INJ ×2 (14:55→15:52)
--- NOTE | 2019-02-09 15:05 | SUR.OPER ---
Supine on padded OR bed. Pillow under head, arms secured on padded armboards <90 degree abduction. Safety belt across torso. Non-operative leg secured with tape over blanket over lower leg. Operative leg secured in DeMayo/Alexys positioner.
[2019-02-09] MEDS: BUPIVACAINE LIPOSOME 266 MG/20 ML VIAL INJ (15:14)
[2019-02-09] MEDS: MORPHINE 4 MG/ML INJ INJ (15:15)
[2019-02-09] MEDS: BUPIVACAINE 0.25% W/ EPI 30 ML VIAL 60 ML INJ (15:16)
--- NOTE | 2019-02-09 16:20 | P.OP_ITS ---
Operative Date/Time/Diagnoses Date of procedure: 02/09/19 Time of procedure: 16:00 Pre-op diagnosis: Left knee osteoarthritis Post-op diagnosis: same Procedure & Clinicians Procedure: Left total knee replacement Same procedure as scheduled: Yes Indications: The patient has had progressively worsening left knee pain with radiographic changes consistent with arthritis. Non-operative management has failed and the patient has requested total knee replacement. The risks, benefits and alternatives to surgery were discussed with the patient prior to proceeding. Risks discussed included, but were not limited to, failure to relieve pain, stiffness, infection, nerve damage, deep venous thrombosis, pulmonary embolism, stroke, coma, heart attack, permanent paralysis and , as well as the potential need for eventual revision of the prosthetic. Surgeon: Jim Morales Beehive Kiln Supervisor: Elise Tovar Click Yes if Unassisted: No Anesthesia Type: General, Spinal and Local Operative Notes Findings: Severe medial and moderate patellofemoral osteoarthritis Closure Type: primary Specimen(s): none sent Prosthetic devices, grafts, tissues, transplants, or devices: Implants used in this procedure were manufactured by the [employer] and [employer] and included the BCS II Journey total knee replacement with a size 7 left cobalt chromium femoral component, a size 7 left non porous tibial base plate, a 10 mm crosslink polyethylene insert and a 35 mm oval Ruth Ann II patellar component. Applied: implant(s) Estimated Blood Loss (mL): 25 Blood products transfused: none Tourniquet time (min): 51 Procedure in detail: The patient was seen in the pre-operative area, where the left knee was identified as the operative site and this was marked with my initials. The patient received pre-operative antibiotics, and was taken to the operating room and placed on the operative table in the supine position. After satisfactory anesthesia, a peripheral equipment operator out was performed. The left leg was encircled with a tourniquet about the proximal thigh, and the leg was prepared from the toes to the tourniquet with ChloroPrep in the usual fashion and draped through sterile drapes. The leg was elevated and exsanguinated with Eschmark bandage and the tourniquet inflated to 250 mmHg pressure. The knee was approached through an approximately 18 cm incision centered over the patella and carried into the knee through a medial parapatellar arthrotomy. The anterior osteophytes and soft tissues were removed. The rotational landmarks of [place]'s line and the transepicondylar axis were marked on the femur with electrocautery, and intramedullary guide holes for the femur and tibia were created. The distal femoral cut was made in 6 degrees of valgus using the intramedullary guide at the primary cut setting. The proximal tibial cut was then made using the intramedullary guide, taking 9 mm of bone off the less involved side. The extension gap was checked and the rotation of the femoral component confirmed with the gap balancing blocks. The anterior, posterior and chamfer cuts were then made. The posterior osteophytes and soft tissues were then removed. The posterior capsule was injected with part of a mixture of 60 ml 0.25% Marcaine mixed with 20 ml Exparel and 4 mg of morphine for post-operative pain control. The remainder of this mixture was injected into the capsule and subcutaneous tissues during cement curing. The tibia was prepared with the rotation set by an extra medullary guide. Trial tibial and femoral components were then placed and the intercondylar notch cut through the femoral trial. Range of motion was 0-135 degrees, with good stability throughout the range. The patella was then cut to accommodate the patellar prosthetic. There was no need for a lateral release. The trials were then removed, and the femoral hole plugged with a bone plug. The bone was prepared with pulsatile lavage, and dried with a sponge. Cement was applied and the final prosthetics placed. Excess cement was removed during and after cement curing. After confirming there was no extruded cement posteriorly, the final tibial insert was placed. The knee was copiously irrigated and the tourniquet deflated. Hemostasis was obtained. The capsule was closed with interrupted # 2 polyester sutures. The subcutaneous layer was closed with 3-0 Vicryl, and the skin with a running 3-0 V-Lock suture and SteriStrips. An Aquacel Ag dressing was applied and the patient was taken to recovery having tolerated the procedure well. Complications: none Condition: stable Disposition: PACU Plan for aftercare: The patient will be maintained on a standard total knee replacement protocol with weight bearing as tolerated. The patient will receive aspirin and sequential compression devices for DVT prophylaxis. The patient will be discharged home when safe for the home environment.
[2019-02-09] MEDS: LACTATED RINGERS 1,000 ML 125 ML IV (17:00)
--- NOTE | 2019-02-09 18:24 | PC.NURSE ---
Pt arrived from PACU at 1700 following L TKA. Rates pain at 3/10 which is tolerable at this time. No drains. Aquacel dressing covered with FERNANDO wrap CDI. Pt reports full sensation and is able to move the affected extremity. Sitting up eating dinner, no nausea. Spouse with pt. Reports he had a Right TKA in September and had problems with voiding post op and pain control after midnight on the day of surgery. Will monitor closely. Last void was at 1430 pre-op. IVF running at 125. Pt reports no desire to void at this time.
[2019-02-09] MEDS: DOCUSATE 100 MG CAPSULE PO (21:01)
[2019-02-09] MEDS: ASPIRIN EC 81 MG TABLET PO (21:01)
--- NOTE | 2019-02-09 22:14 | PC.NURSE ---
Pt continues to have minimal pain. Attempted to void by ambulating to BR with no success. States he feels reduced sensation in the groin area. Straight cath produced 750 cc of clear, yellow urine.
[2019-02-09] MEDS: HYDROMORPHONE 0.5 MG INJ IV (23:43)
[2019-02-10] MEDS: LACTATED RINGERS 1,000 ML 125 ML IV (01:11)
[2019-02-10 05:25] VITALS: BP 121/82; PULSE 56; RESP 17; TEMP 36.5; O2SAT 98
[2019-02-10 05:51] LABS: Hematocrit 40.8 % (41-53); Hemoglobin 13.7 g/dL (13.5-17.5)
[2019-02-10 07:38] VITALS: BP 115/80; PULSE 58; RESP 18; TEMP 36.8; O2SAT 96
--- NOTE | 2019-02-10 07:44 | PM.DS.1 ---
History of Present Illness Date Patient Seen: 02/10/19 Time Patient Seen: 07:44 Chief complaint: [id number] LEFT TKA Narrative: The history and physical are contained in the chart in a previously completed note. Please refer to that note for this information. Discharge Providers Date of admission: 02/09/19 11:50 Discharge Date: 02/10/19 Primary care physician: Mahamed Orourke MD Consults: 02/09/19 17:07 Consult to Discharge Planning Routine Comment: Consult to Physical Therapy Evaluate & Treat Comment: Physician Instructions: postop TKA protocol Discharge provider: Jim Morales MD Summary Discharge Diagnosis: 1. Left knee osteoarthritis 2. Mild post hemorrhagic anemia Hospital Course: The patient was admitted to the hospital and taken directly to the operating room on February 09, 2018. He underwent uncomplicated left total knee replacement. He was comfortable postoperatively and was voiding spontaneously. He was interested in going home and the plan is for him to go home after physical therapy this morning. Status at Discharge Cognitive/behavioral status at discharge: oriented Functional status at discharge: uses cane/walker Overall status at discharge: patient is progressing back to baseline Time Spent with Patient Less than 30 minutes Exam Vital Signs (past 8 hours): - 02/09/19 23:58 02/10/19 05:25 Temperature 97.4 F L 97.7 F Pulse Rate 61 56 L Respiratory Rate 18 17 Blood Pressure 93/64 121/82 Pulse Oximetry 93 98 Oxygen Delivery Method Room Air Narrative Exam Narrative: Left knee wound is dressed with no drainage on the bandage. Calf is soft. Light touch and motion are intact in the left lower extremity. Objective Labs Result Diagrams: 02/10/19 05:17 Labs: Laboratory Results - last 24 hr 02/10/19 05:17 Hgb 13.7 Hct 40.8 L Discharge Plan Discharge Plan Patient Disposition: Home Discharge Med Rec/Prescriptions Prescriptions: New acetaminophen 325 mg Tablet 975 mg PO TID 30 Days Qty: 270 RF: 0 aspirin 81 mg Tablet,Delayed Release (Dr/Ec) 81 mg PO BID 42 Days Qty: 84 RF: 0 hydromorphone 2 mg Tablet 2 mg PO Q3H PRN (Reason: Pain, Severe (7-10)) Qty: 40 RF: 0 hydroxyzine pamoate 25 mg Capsule 25 mg PO Q6HR PRN (Reason: Nausea) Qty: 40 RF: 0 Continued hydrocortisone 5 mg Tablet 5 mg PO DAILY RF: 0 Nature-Throid 65 mg Tablet 65 mg PO DAILY RF: 0 Test-Chrysin Lipo cream 1 applic Topical DAILY RF: 0 Discontinued aspirin 81 mg tablet,delayed release (DR/EC) 1 - 2 mg PO DAILY RF: 0 Follow up/Referrals: Mahamed Orourke MD [Primary Care Provider] - Jim Morales MD [Physician] - 3-5 Days Provider Discharge Instructions Diet: Diet as Tolerated Activity: You may weight bear as tolerated on your left leg Cold/Heat Therapy: Apply ice for 15 minutes of every hour as needed for pain Skin/Wound/Dressing Care Report to your healthcare provider any signs of infection, such as:: chills, fever, night sweats, increased pain, unusual drainage and unusual redness Dressing: Remove the Gerry wrap 3 days after surgery. You may shower with the deeper dressing in place. If the central strip of the deeper dressing becomes saturated with either water or blood, call the office to have it changed. Visit Report/Discharge Packet Instructions: DI for Knee Replacement Stand Alone Forms: Surgery Discharge Discharge Data Primary Care Provider: Mahamed Orourke Attending Provider: Jim Morales Admit Date/Time: 02/09/19 11:50 Quality VTE Deep Vein Thrombosis/Pulmonary Embolism Present on Admission: No
[2019-02-10] MEDS: MELOXICAM 7.5 MG TABLET 15 MG PO (10:05)
[2019-02-10] MEDS: DOCUSATE 100 MG CAPSULE PO (10:07)
[2019-02-10] MEDS: ASPIRIN EC 81 MG TABLET PO (10:07)
[2019-02-10] MEDS: ACETAMINOPHEN 325 MG TABLET 975 MG PO (10:07)
[2019-02-10] MEDS: HYDROCORTISONE 10 MG TABLET 5 MG PO (10:08)
[2019-02-10] MEDS: HYDROMORPHONE 2 MG TABLET PO ×2 (10:08→13:01)
--- NOTE | 2019-02-10 10:09 | PT.IIE ---
Current Diagnoses Bilateral primary osteoarthritis of knee (02/09/19) Surgery Performed Operation Date: 02/09/19 13:45 Actual Procedures p Total Knee Arthroplasty(Left) - Jim Morales MD Surgical History (Last Updated 01/26/19 @ 12:33 by Janeth Avila, RN) History of arthroplasty of right knee (Acute 10/13/18) History of inguinal hernia repair, bilateral (Acute) Hx of repair of right rotator cuff (Acute) Medical History (Last Updated 09/17/18 @ 10:28 by Janeth Avila RN) Arthritis (Acute) Cataracts, bilateral (Acute) Chronic back pain (Acute) Chronic neck pain (Acute) Chronic right shoulder pain (Acute) Detached retina, right (Acute ~2011) Eczema (Acute) Frequent PVCs (Acute ~2006) Hypothyroidism (Acute) Iatrogenic adrenal insufficiency (Acute) Kidney stones (Acute ~1979) MRSA (methicillin resistant Staphylococcus aureus) (Acute) Migraines (Acute) Neuropathy (Acute) Osteoarthritis (Acute) Pneumonia (Acute) Sleep apnea (Acute) Testicular hypofunction (Acute) Physical Therapy Inpatient Evaluation/Re-Eval M1 PT/OT-IP Prior Functional Status Start: 02/10/19 11:34 Freq: NEEDED Status: Active Protocol: Document 02/10/19 10:09 DLM (Rec: 02/10/19 11:46 DLM [email or web address]) Medical Review Prior Functional Status Medical History Reviewed Yes Diet/Fluid Consistency Regular Communication WNL Mobility and Gait Independent without device Activities of Daily Living and IADL's Independent Prior Functional Level (Other details) active lifestyle, drives Social History Household Members spouse Living Arrangements House Number of Floors (Floors) One Floor Number of Stairs To Enter/Railing? 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 Right TKA 10/13/18 M2 PT-IP Current Condition Start: 02/10/19 11:34 Freq: NEEDED Status: Active Protocol: Document 02/10/19 10:09 DLM (Rec: 02/10/19 11:46 DLM [email or web address]) Physical Therapy Current Condition Current Condition Evaluation Date 02/10/19 Treatment Diagnosis left TKA Onset Date 02/09/19 Weight Bearing Status Weight Bearing Status Weight Bear as Tolerated M3 PT-IP Subjective Start: 02/10/19 11:34 Freq: NEEDED Status: Active Protocol: Document 02/10/19 10:09 DLM (Rec: 02/10/19 11:46 DLM [email or web address]) Subjective Physical Therapy Visit Type Type Initial Evaluation Visit Start Time 09:10 Visit Stop Time 10:09 Total Visit Minutes 59 Number of FLIGHT RADIO OPERATOR Visits 0 Physical Therapy Visit Comments Patient Comments He feels he is doing better than after his right TKA. He feels like he can go home today. Patient Goals home today Therapy Pain Assessment Pain When Pain Assessed At Rest Pain Present Pain Present Pain Reported Location Right Knee Intensity 4 Scale Used Numeric (1 - 10) Description Aching Pain Behaviors Facial Grimacing Guarding Pain Management Techniques Apply Cold Re-positioning Timing of Activity with Medications M4 PT-IP Mobility and Gait Start: 02/10/19 11:34 Freq: NEEDED Status: Active Protocol: Document 02/10/19 10:09 DLM (Rec: 02/10/19 11:46 DLM [email or web address]) PT-Bed Mobility Assessment Rolling Level of Assist Independent Supine to Sit Supine to Sit Independent Sit to Supine Sit to Supine Independent Scooting Scooting to Edge of Bed Independent Scooting Up and Down in Bed Independent PT-Transfer Assessment Sit to and From Stand Sit to and from Stand Independent Use of Upper Extremities Equipment Transfer Assistive Device Gait Belt Front Wheeled Walker Transfers Transfer Destination Chair Transfer Technique Stand Step Pivot Transfer Ability Level of Assist Independent Use of Upper Extremities Comments Mobility Comments Up to recliner today Gait Assessment Gait Gait Assistance Required: Independent Distance (Feet) 120 Able to Maintain Weight Bearing Status Yes During Gait Assistive Devices Assistive Device Gait Belt Front Wheeled Walker Gait Deviations General Gait Pattern Antalgic Factors Limiting Gait Function Factors Limiting Gait Function Decreased Activity Tolerance Decreased Strength Limited Range of Motion Pain Stair Climbing Assessment Evaluation Level of Assist On Stairs Standby Assistance Devices Stair Climbing Assistive Devices Left Railing Right Railing Technique/Endurance Stair Climbing Direction Ascend and Descend Stair Climbing Technique Step to Step Number of Steps Climbed 4 Query Text: Stair Climbing Set # Repetitions (reps) 1 Comments Stair Climbing Comments he will need cane at home for stairs PT-Balance Assessment Sitting Balance and Reactions Static Sitting Balance Ability Normal Dynamic Sitting Balance Ability Good Standing Balance and Reactions Static Standing Balance Ability Good Dynamic Standing Balance Ability Good Device Used FWW M5 PT-IP Objective Assessments Start: 02/10/19 11:34 Freq: NEEDED Status: Active Protocol: Document 02/10/19 10:09 DLM (Rec: 02/10/19 11:46 DL [email or web address]) Orientation Orientation/Cognition Level of Alertness Alert Orientation Name Age Birthday Month Date Year Day of Week Place Situation Language Function Ability No Deficits Noted Safety Awareness Understands Safety Issues Memory Description No Deficits Noted Gross Range of Motion Upper Extremity ROM Assessment Within Functional Limits Lower Extremity ROM Assessment Left Impaired Impairments knee AROM 10-87 degrees with pain Strength Upper Extremity Strength Assessment Within Functional Limits Lower Extremity Strength Assessment Left Impaired Hip needs assist with straight leg raise Knee knee ext 3-/5 Ankle DF 5/5 Comments Strength Comments pain left LE affecting his strength post-op Coordination Assessment Gross Coordination Gross Coordination WNL Sensation Assessment Sensation Gross Sensation Right LE Impaired Left LE Impaired Comments Sensation Comments hx of neuropathy Muscle Tone Muscle Tone WNL Yes M6 PT-IP Treatment Start: 02/10/19 11:34 Freq: NEEDED Status: Active Protocol: Document 02/10/19 10:09 DLM (Rec: 02/10/19 11:46 DL [email or web address]) Physical Therapy Treatment Exercises Exercises Ankle Pumps Quad Sets Heel Slides Straight Leg Raises Short Arc Quads Passive Knee Extension Hang Seated Knee Flexion/Extension Education Education Provided Weight Bearing Status Post-Op Packet Safety Equipment Issued Equipment Type and Company he has a FWW at home M7 PT-IP Assessment and Plan Start: 02/10/19 11:34 Freq: NEEDED Status: Active Protocol: Document 02/10/19 10:09 DLM (Rec: 02/10/19 11:46 DL [email or web address]) PT Summary Assessment and Plan Potential Rehabilitation Potential Excellent Status of Condition at Evaluation Evolving Summary Impairments Pain ROM Strength Balance Bed Mobility Transfers Gait Activity Tolerance Progress Towards Goals Safe For Discharge Assessment Summary Narciso is alert and motivated to participate in physical therapy. He tolerated gait, stairs and his exercises well over-all with mild increase in pain. Ice applied at end of treatment session. He appears safe to discharge home with his to assist him. He reports having out-pt PT set up for 02/18. He is cleared by physical therapy for safe discharge home when medically cleared. Frequency of Treatment Frequency Of Treatment Discharge Recommendations To Nursing Amount of Assist Needed Standby Assistance Discharge Recommendations PT Discharge Recommendations Home with Assistance Outpatient PT
[2019-02-10] MEDS: hydrOXYzine pamoate 25 MG CAPSULE PO (12:15)
--- NOTE | 2019-02-10 13:07 | PC.NURSE ---
Day shift: Pt left unit in WC with [employer] to private car driven by family friend for trip back home to [facility]. Medicated for pain just now. Paperwork signed and all questions answered. Pt has all personal belongings. Pt is [employer] so he already has his MD scrips.
--- NOTE | 2019-02-10 17:41 | CM.DANOTE ---
Discharge Planning/Care Management DCP: assessment: case received this morning and discussed in Team Rounds. Orthopedic team stated that pt was ok to d/c as long as he was cleared by PT. Pt is a 73 year old male who admitted yesterday for a planned L TKA/ [facility] payer. PT did work with pt, cleared him for home and he left with a family friend driving for his home setting at 1300. No d/c needs were identified by the Care Team. Advanced directive, confirm from FAMILY Start: 02/09/19 17:34 Freq: Q24H Status: Discharge Protocol: Document 02/09/19 17:41 AMM (Rec: 02/09/19 17:42 AMM [email or web address]) Advance Directive, confirm on record Time 17:45 Person contacted spouse Copy received Yes CM Discharge Assessment Start: 02/10/19 17:40 Freq: Status: Discharge Protocol: Document 02/10/19 17:41 ITV (Rec: 02/10/19 17:41 ITV [email or web address]) Discharge Planning Assessment Advance Directives? No: Has paperwork from last surgery, has not filled out Advance Directives on File No History Provided By Patient Family Member Medical Record Prior Living Arrangements House Household Members spouse Patient/Family Preference OP PT Therapy Discharge Plan Home Transportation Arrangement Family to provide transport. Referrals Initiated None needed Pre-Anesthesia Assessment Start: 01/26/19 12:14 Freq: Status: Discharge Protocol: Document 01/26/19 12:14 CAB (Rec: 01/26/19 12:19 CAB [id number]) Pre-Anesthesia Assessment PAC Comment Pt requests Dilaudid for pain control, states Oxycodone does not work Patient Information Reviewed Via Phone Assessment Assessment Completed With Patient Diagnostic Results BMP/CMP CBC Urinalysis Comment Outside labs 01/20/19 scanned to record. EKG @ [facility] 09/11/18 Primary Care Provider Mahamed Orourke Seen Specialist in Last 12 Months Yes Specialist Seen Orthopedist Patch Sander Other Comment Neurology Primary Language Italian Preferred Language Italian Big Data Engineer Required No Height 177.8 cm Weight 81.647 kg Body Mass Index (BMI) 25.8 Hearing Ability Normal Visual Impairment No Limitations Visual Assist None Dentition Type Teeth, Natural Present Teeth, Broken Barriers to Learning None Other Aids No Hx Anesthesia Reactions No Hx Family Anesthesia Reaction No Hx Malignant Hyperthermia No Hx Blood Transfusions No Hx Blood Transfusion Reaction No Anesthesia Review Requested No Director Of Claims No alcohol intake current alcohol intake frequency a few times a week Smoking Status Never smoker Substance Use Type marijuana Comment Vapes marijuana, advised not to vape 24 hours prior to surgery Pain Present Pain Reported Musculoskeletal Symptoms Abnormal Gait Back Pain Difficulty Walking Joint Pain Muscle Cramps Neck Pain Numbness History of Falling (Recent or History of No ) Patient is completely paralyzed or No completely immobile Mental Status Oriented to own ability Is patient on oxygen? No Does patient have MOLINA/SOB No Hx Sleep Apnea Yes: Pt states, mild, CPAP did not help CPAP/BIPAP use prescribed not used Currently Taking a Beta Christopher No Can You Climb a Flight of Stairs Without Yes SOB Hx Chest Pain No Hx SOB No Hx Syncope or Dizziness No Anti-Coagulant Therapy No Has a Business Area Director No Cardiac Testing No Hx Pacemaker/ICD No Pacemaker Rep Required? No Cardiac Clearance Received Not Applicable Diet Type At Home Regular dysphagia No Bladder Pattern Retention Urinary Catheter Present No Hx Urinary Self Catheterization No Comment Urinary retention after right knee arthroplasty 09/2018 Diabetes No HgbA1C 5.9 Date 01/20/19 Hx Drug Resistant Organism Yes: MRSA+ '03, 12 Presence of External or Internal Medical Yes: Right knee prosthesis Devices Have you traveled outside the [facility] in the last 30 days? Marital Status Lives With spouse Prior Living Arrangements House Number of Floors (Floors) Two Floors Support System Spouse Does the Patient Have Assistance After Yes Surgery Patient Discharge Plan Description Return Home Feels Safe in Current Environment Yes Been Physically Hurt or Threatened By a No Person in Current Environment Do you have thoughts of harming yourself None or others? Are you currently considering suicide? No Do you have a plan to hurt yourself or No Plan others? Do You Have Any Spiritual Beliefs That No May Affect Your HC Choices? Do You Have Any Cultural Practices That No May Affect Your HC Choices? Who Can We Speak to About Patient's Care Family, friends Identifying Code for Release of Patient Declines to issue Information Health Care Proxy/Next of Kin Janel () Health Care Proxy Emergency Contact Name Janel () Emergency Contact Advance Directives? Yes: Has paperwork from last surgery, has not filled out Advance Directives on File No Requested Patient Bring Advanced Yes Directives DOS PAC Instructions Durable medical equipment Medications to take/avoid Nasal antibiotic No ETOH/petroleum product on skin DOS NPO Post-op transportation Pre-surgical wash Sturdy shoes/comfortable clothes Do not bring valuables and remove jewelry
== END 2019-02-10 13:09 | disposition home or self-care (01) | DRG 470 ==
PROVIDERS: Admitting Provider Orthopaedic Surgery; PCP Internal Medicine; Visit Provider Orthopaedic Surgery
PROC: 0SRD0JZ Replacement of Left Knee Joint with Synthetic Substitute, Open Approach (ICD-10-PCS; CPT 27447; principal; 2019-02-09 13:45)
DX: M17.12 Unilateral primary osteoarthritis, left knee (principal); Z96.651 Presence of right artificial knee joint
CPT/HCPCS: 36415; 73560; 85014; 85018; 94762; 97110; 97162; C1776; C9290; J0690; J1100; J1170; J2250; J2270; J2274; J2405; J2704; J3010